=== PATIENT | female | born 1980 | race African-American/Black ===

== ENCOUNTER 2021-10-20 11:19 | Emergency (ER) | payer OTHER ==
[~2021-10-20] VITALS: Ht 175.3 cm; Wt 99.8 kg
[2021-10-20] MEDS ORDERED: COZAAR25 MG PO (11:55)
[2021-10-20] MEDS ORDERED: GLUMETZA500 MG PO (11:56)
[2021-10-20] MEDS ORDERED: MUPIROCIN22 GM TOP (13:19)
[2021-10-20] MEDS ORDERED: MEDROLPACK PO (13:19)
[2021-10-20] MEDS ORDERED: DUI500 PO (13:19)
== END 2021-10-20 14:22 | disposition home or self-care (01) ==
LOC: ER 11:19
DX: S40.862A Insect bite (nonvenomous) of left upper arm, initial encounter (principal); S20.462A Insect bite (nonvenomous) of left back wall of thorax, initial encounter; W57.XXXA Bitten or stung by nonvenomous insect and other nonvenomous arthropods, initial encounter; Y93.9 Activity, unspecified; Y92.9 Unspecified place or not applicable; Y99.9 Unspecified external cause status; E11.9 Type 2 diabetes mellitus without complications; Z79.84 Long term (current) use of oral hypoglycemic drugs; I10 Essential (primary) hypertension